=== PATIENT | female | born 1995 | race Caucasian/White ===

== ENCOUNTER → 2022-04-09 | Outpatient (CLI) | payer OTHER | LOC: KOH-I 15:49 | DX: S82.862A Displaced Maisonneuve's fracture of left leg, initial encounter for closed fracture (principal); S82.242A Displaced spiral fracture of shaft of left tibia, initial encounter for closed fracture | CPT/HCPCS: 73700 ==

== ENCOUNTER 2022-04-11 08:43 | Day surgery (SDC) | payer OTHER ==
[~2022-04-11] VITALS: Ht 160 cm; Wt 81.6 kg
[2022-04-11 09:20] LABS: HEMOGLOBIN 13.3 gm/dl (12.3-15.3); RED BLOOD COUNT 4.82 M/UL (4.00-5.10); WHITE BLOOD COUNT 7.3 K/UL (4.5-11.0)
[2022-04-11] MEDS ORDERED: IBUPROFEN IB200 MG PO (09:37)
[2022-04-11] MEDS ORDERED: HYDROCODON-ACE1 EAC4 PO (09:37)
[2022-04-11 10:03] LABS: BUN/CREATININE RATIO 12 (0-10)
[2022-04-11] MEDS ORDERED: IBUPROFEN800 MG PO (14:13)
[2022-04-12] MEDS ORDERED: HYDROCODON-ACE1 EAC6 PO (07:13)
[2022-04-12] MEDS ORDERED: LOVENOX40 MG/0.4 SQ (07:13)
== END 2022-04-12 09:41 | disposition home or self-care (01) ==
LOC: OR 08:43 → MED SURG 4 14:03 → OR 04-12 09:41
PROVIDERS: Orthopaedic Surgery
DX: S82.242A Displaced spiral fracture of shaft of left tibia, initial encounter for closed fracture (principal); S82.832A Other fracture of upper and lower end of left fibula, initial encounter for closed fracture; W01.0XXA Fall on same level from slipping, tripping and stumbling without subsequent striking against object, initial encounter
CPT/HCPCS: 73590; 76000; 80048; 84703; 85027; 97116; 97161; 97165; C1713; J0690; J1100; J1170; J1650; J1885; J2250; J2405; J2704; J3010